=== PATIENT | female | born 1990 | race Caucasian/White ===

== ENCOUNTER 2017-01-13 18:25 | Emergency (ER) | payer MEDICAID ==
[2017-01-13 18:30] VITALS: RESP 16
[2017-01-13 19:22] LABS: COLOR ORANGE
--- NOTE | 2017-01-13 19:31 | EDPHY ---
H & P Stated Complaint: ?UTI Time Seen by Provider: 01/13/17 18:46 - Personal History LMP (Females 10-55): 1-7 Days Ago Current Tetanus/Diphtheria Vaccine: Yes Current Tetanus Diphtheria and Acellular Pertussis (TDAP): Yes - Medical/Surgical History Hx Asthma: No Hx Chronic Respiratory Disease: No Hx Diabetes: No Hx Cardiac Disease: No Hx Renal Disease: No Hx Cirrhosis: No Hx Alcoholism: No Hx HIV/AIDS: No Hx Splenectomy or Spleen Trauma: No - Social History Smoking Status: Never smoked Constitutional: Initial Vital Signs Temperature (C) 36.9 C 01/13/17 18:28 Heart Rate 105 H 01/13/17 18:28 Respiratory Rate 16 01/13/17 18:28 Blood Pressure 138/99 H 01/13/17 18:28 O2 Sat (%) 96 01/13/17 18:28 O2 Delivery Mode Room Air Allergies/Adverse Reactions: No Known Allergies Allergy (Unverified 01/13/17 18:30) Home Medications: Medication Instructions Recorded Cephalexin [Keflex (RX)] 500 mg PO TID #30 cap 01/13/17 Fluconazole [Diflucan (*)] 100 mg PO DAILY #7 tab 01/13/17 Medical Decision Making ED Course/Re-evaluation: CHIEF COMPLAINT: Urinary tract symptoms and vaginal discharge HISTORY OF PRESENT ILLNESS: Patient was treated over the last several weeks for bacterial vaginosis. She was on 2 rounds of antibiotics the 1st round was Flagyl. She then use some metronidazole all trans vaginal cream. She got better then had symptoms recurring and her doctor started on clindamycin. She was also started on amoxicillin since she had positive group B strep culture vaginally also. Now she is having severe itching and some white discharge from her vagina. She is also having frequency or urgency and burning. She denies any other symptoms. She denies any fevers or chills or flank pain or nausea or vomiting REVIEW OF SYSTEMS: A 10 point review of systems was performed and is negative with the exception of the elements mentioned in the history of present illness. PHYSICAL EXAM: HR, BP, O2 Sat, RR. Temp noted General Appearance: Alert, well hydrated, appropriate, and non-toxic appearing. Head: Atraumatic without scalp tenderness or obvious injury Eyes: Pupils equal, round, reactive to light and accommodation, EOMI, no trauma , no injection. Ears: Clear bilaterally, no perforation, normal landmarks Nose: Atraumatic, no rhinorrhea, clear. Throat: There is no erythema or exudates, no lesions, normal tonsils, mucus membranes moist. Neck: Supple, 2+ carotid upstroke, nontender, no lymphadenopathy. Respiratory: No retractions, no distress, no wheezes, and no accessory muscle use. Lungs are clear to auscultation bilaterally. Cardiovascular: Regular rate and rhythm, no murmurs, rubs, or gallops. Bilateral carotid, radial, dorsalis pedis, and posterior tibial pulses intact. Good capillary refill all extremities. Gastrointestinal: Abdomen is soft, nontender, non-distended, no masses, no rebound, no guarding, no peritoneal signs. Pelvic examination: The mucosa is mildly erythematous with a white mild discharge. No foul odor. Cultures taken. Appears to be some excoriated vaginal mucosa secondary to yeast infection at this time. Musculoskeletal: Normal active ROM of all extremities, atraumatic. Neurological: Alert, appropriate, and interactive. The patient has normal DTRs and non-focal cranial nerves, motor, sensory, and cerebellar exam. Skin: No rashes, good turgor, no nodules on palpation. Past medical history: Bacterial vaginosis Past surgical history: Noncontributory Family history: Noncontributory Social history: Single, employed, does not abuse tobacco drugs or alcohol DIFFERENTIAL DIAGNOSIS: Includes but is not limited to: Yeast infection, urinary tract infection, bacterial vaginosis, other bacterial vaginal infection. MEDICAL DECISION MAKING: This patient is in no distress. Vaginal exam was performed cultures are pending. I think this patient most likely just has a yeast infection from her several courses of antibiotics. In addition, urine is pending. Reassessed patient and discussed her positive UTI lab results. I have prescribed Keflex for her UTI and Fluconazole for her yeast infection. I recommend she follows up with her disposition clerk if any of her symptoms continue or worsen. Return precautions provided, she is comfortable with this plan. - Data Points Laboratory Results: 01/13/17 01/13/17 19:23 19:18 Urine Color ORANGE Urine Appearance HAZY Urine pH TNP Ur Specific [place] TNP Urine Protein TNP Urine Ketones TNP Urine Blood TNP Urine Nitrate TNP Urine Bilirubin TNP Urine Urobilinogen TNP Ur Leukocyte Esterase TNP Urine RBC 0-1 /hpf /hpf (0-3) Urine WBC 10-15 /hpf H /hpf (0-3) Ur Epithelial Cells 3+ /lpf H /lpf (NONE-1+) Urine Bacteria TRACE /hpf H /hpf (NONE SEEN) Urine Trichomonas 2+ /hpf H /hpf (NONE SEEN) Urine Glucose TNP Kim species DNA NEGATIVE (NEGATIVE) Gardnerella DNA Probe NEGATIVE (NEGATIVE) Trichomonas DNA Probe POSITIVE H (NEGATIVE) Microbiology Results: MICROBIOLOGY 01/13/17 19:23 Vaginal - Swab Gram Stain - Final Medications Given: Discontinued Medications Cephalexin HCl (Keflex) 500 mg PO EDNOW ONE PRN Reason: Protocol Stop: 01/13/17 19:49 Last Admin: 01/13/17 20:07 Dose: 500 mg Fluconazole (Diflucan) 100 mg PO EDNOW ONE Stop: 01/14/17 19:49 Last Admin: 01/13/17 20:09 Dose: 100 mg Departure - Departure Disposition: Home, Routine, Self-Care Clinical Impression: UTI (urinary tract infection) Qualifiers: Urinary tract infection type: site unspecified Hematuria presence: without hematuria Qualified Code(s): N39.0 - Urinary tract infection, site not specified Condition: Good Instructions: Urinary Tract Infection in Women (ED) Additional Instructions: 1. Take Keflex as prescribed. Make sure to complete this prescription without fail, even if you start to feel better. 2. Take Fluconazole for the next 7 days, for your yeast infection. 3. Follow up with your disposition clerk in the next week if you do not experience relief of your symptoms. You have been referred to Dr. Etienne if you do not have a disposition clerk. 4. Return to the ED if you experience incontinence, numbness, or severe worsening of your symptoms. Referrals: Charisse Etienne DO [Doctor of Osteopathy] - As per Instructions Prescriptions: Cephalexin [Keflex (RX)] 500 mg PO TID #30 cap Fluconazole [Diflucan (*)] 100 mg PO DAILY #7 tab Report Scribed for: Skyler Sue Report Scribed by: Ary Lobo Date of Report: 01/13/17 Time of Report: 19:48
[2017-01-13 19:35] LABS: RBC,URINE 0-1 /hpf (0-3)
[2017-01-13 19:36] LABS: BACTERIA TRACE /hpf (NONE SEEN)
[2017-01-13] MEDS ORDERED: CEPHALEXIN 500 MG CAP PO ONE (19:48)
[2017-01-13] MEDS: FLUCONAZOLE 100 MG TAB PO ONE ×2 (20:08→20:09)
[2017-01-13 20:21] VITALS: BP 148/107; PULSE 92; TEMP 97.2; O2SAT 98
== END 2017-01-13 20:20 | disposition home or self-care (01) ==
DX: N39.0 Urinary tract infection, site not specified (principal); B96.20 Unspecified Escherichia coli [E. coli] as the cause of diseases classified elsewhere